=== PATIENT | female | born 1985 | race Caucasian/White ===

== ENCOUNTER 2019-10-06 17:16 | Emergency (ER) | payer OTHER ==
[~2019-10-06] VITALS: Ht 177.8 cm; Wt 139.3 kg
[2019-10-06] MEDS ORDERED: SYNTHROID50 MCG (17:50)
[2019-10-06] MEDS ORDERED: TOPROL XL25 M1 (17:51)
== END 2019-10-06 20:44 | disposition home or self-care (01) ==
LOC: ER 17:16
DX: I16.0 Hypertensive urgency (principal); I10 Essential (primary) hypertension